=== PATIENT | female | born 1980 | race Caucasian/White ===

== ENCOUNTER → 2021-03-05 08:40 | Outpatient (BNVA) | payer OTHER, SELFPAY | PROVIDERS: Visit Provider Advanced Practice Midwife | DX: N92.6 Irregular menstruation, unspecified (principal) | CPT/HCPCS: 81025 ==

== ENCOUNTER 2021-03-26 09:17 | Outpatient (REF) | payer OTHER, SELFPAY ==
--- NOTE | ~2021-03-26 | US_ITS ---
EXAMINATION: US OBSTETRICAL ULTRASOUND CLINICAL INFORMATION: Unknown LMP. COMPARISON: None. LMP: . Gestational age by maternal dates is . Estimated date of delivery by maternal dates is . TECHNIQUE: Transabdominal first trimester OB ultrasound FINDINGS: There is a single intrauterine gestational sac with visible yolk sac, embryo/fetus, and cardiac activity. There is no significant subchorionic hemorrhage or hematoma. HR: 160 beats per minute. CRL (crown rump length): 1.2 cm (7 weeks 3 days +/- 4 days). NOHEMI (estimated date of delivery): 11/09/2020 +/- 4 days. MATERNAL ADNEXA: The right maternal ovary measures 2.4 x 1.1 x 2.4 cm. The left maternal ovary measures 4.2 x 3.1 x 2.4 cm. there are 2 cysts measuring 2.7 x 2.5 x 2.2 cm and 1.7 0.7 x 1.4 cm. There is no significant maternal adnexal mass. No maternal pelvic ascites. US/US OB <= 14 weeks fetus IMPRESSION: 1. Single intrauterine gestation with ultrasound gestational age of 7 weeks 3 days +/- 4 days. 2. Estimated date of delivery is 11/09/2020 +/- 4 days.
== END 2021-03-26 09:18 | disposition home or self-care (01) ==
LOC: HO.US 09:17
PROVIDERS: Visit Provider Advanced Practice Midwife
DX: O09.521 Supervision of elderly multigravida, first trimester (principal); Z3A.08 8 weeks gestation of pregnancy
CPT/HCPCS: 76801

== ENCOUNTER → 2021-04-02 13:54 | Outpatient (BNVA) | payer OTHER, SELFPAY | PROVIDERS: Visit Provider Advanced Practice Midwife | DX: O09.521 Supervision of elderly multigravida, first trimester (principal); Z3A.08 8 weeks gestation of pregnancy; Z83.3 Family history of diabetes mellitus | CPT/HCPCS: 99212 ==

== ENCOUNTER 2021-04-25 13:28 | Outpatient (REF) | payer OTHER, SELFPAY ==
--- NOTE | ~2021-04-25 | US_ITS ---
EXAMINATION: OBSTETRICAL ULTRASOUND, FIRST TRIMESTER HISTORY: 40-year-old at 12.0 weeks of gestation AMA NT screening COMPARISON: 03/26/2021 TECHNIQUE: Real time transabdominal imaging with color and M-mode Doppler. FINDINGS: A single, live IUP CRL of 62.8 mm c/w 12.5wks is noted. Heart Rate: 160 beats per minute. Normal yolk sac seen. NT was 1.3.mm. NB Present The embryo appears sonographically wnl for this GA. Both maternal ovaries are seen and appear normal. GESTATIONAL AGE: 1. Established GA: 12.0 wks 2. GA from AUA: 12.5 wks ESTIMATED DATE OF DELIVERY: 1. Established NOHEMI: 11/07/2021 2. NOHEMI from [facility]: 11/02/2021 US/US OB 1T nuc measure IMPRESSION: 1. A single live IUP 2. Size equals dates 3. NT of 1.3 mm MFM Consultation: I reviewed the ultrasound findings along with significance of NT measurement. The NT of less than 3mm is generally reassuring. However, the sensitivity for T21 detection is only 60%. I reviewed the availability of serum aneuploidy screening which includes cell-free DNA and placental protein based tests. I discussed the sensitivity, false-positive rate, and other limitations associated with each test. I also reviewed the availability of invasive diagnostic tests that are associated small but definite risk of miscarriage. We also reviewed the differences between screening tests and diagnostic tests. After our discussion, she opted for the First trimester screening that is based on cell-free DNA or non-invasive testing (NIPT). The result will be faxed to your office in approximately 7 days. A follow up at 18 weeks for survey has been scheduled. Thank you very much for this referral. Total time 30 minutes. The time spent was devoted to counseling the patient about the disease and diagnosis, coordinating care including reviewing her records, pertinent lab data and studies, as well as discussing diagnostic evaluation and workup, plan therapeutic interventions and future disposition of care. This includes any additional research needed to obtain further information in formulating the plan of care of this patient. This note was generated with a voice recognition program. Please excuse any errors which may have been overlooked during my review of this note. Sometimes these errors may affect the content or meaning of a given sentence.
== END 2021-04-25 13:29 | disposition home or self-care (01) ==
LOC: HO.US 13:28
PROVIDERS: Visit Provider Advanced Practice Midwife
DX: O09.529 Supervision of elderly multigravida, unspecified trimester (principal)
CPT/HCPCS: 76813

== ENCOUNTER 2021-05-09 08:34 | Outpatient (REF) | payer OTHER, SELFPAY ==
[2021-05-09 13:59] LABS: CT PCR NOT DETECTED (Not Detect.); NG PCR NOT DETECTED (Not Detect.)
[2021-05-11 11:57] LABS: BV Int Neg Control Negative (Negative); BV Int Pos Control Positive (Positive)
== END 2021-05-09 08:35 | disposition home or self-care (01) ==
LOC: HO.LAB 08:34
PROVIDERS: Visit Provider Advanced Practice Midwife
DX: O09.521 Supervision of elderly multigravida, first trimester (principal); O99.281 Endocrine, nutritional and metabolic diseases complicating pregnancy, first trimester; E04.9 Nontoxic goiter, unspecified; O99.891 Other specified diseases and conditions complicating pregnancy; N89.8 Other specified noninflammatory disorders of vagina; Z3A.13 13 weeks gestation of pregnancy
CPT/HCPCS: 81003; 87480; 87491; 87510; 87591; 87660; 99212

== ENCOUNTER 2021-05-16 09:20 | Outpatient (REF) | payer OTHER, SELFPAY ==
[2021-05-16 09:50] LABS: Hematocrit 33.4 % (37-47); Hemoglobin 11.2 g/dl (12.0-16.0); Mean Corpuscular HGB Conc 33.5 g/dl (31.0-35.0); Mean Corpuscular Hemoglobin 31.3 pg (27.0-33.0); Mean Corpuscular Volume 93.3 fL (80-98); Mean Platelet Volume 9.1 fL (9.4-12.3); Platelet Count 289 X10*3/uL (160-400); Red Blood Count 3.58 X10*6/uL (4.20-5.50); Red Cell Distribution Width 12.8 % (11.0-16.0); White Blood Count 9.2 X10*3/uL (4.8-10.8)
[2021-05-16 10:31] LABS: TSH reflex Free T4 (Prenatal) 0.84 uIU/mL (0.32-4.0)
[2021-05-16 10:35] LABS: HBsAGNum1 0.18 S/CO (0.00-0.99); HIV AB/AG Nonreactive (Nonreactive); HIV Num 1 0.11 S/CO (0.00-0.99); Hepatitis B Surface Antigen Negative (Negative); ~HepC Num1 0.06 S/CO (0.00-0.79); ~Hepatitis C Antibody Nonreactive (Nonreactive)
[2021-05-16 10:46] LABS: Syphilis Screen Nonreactive (Nonreactive)
[2021-05-16 11:10] LABS: Amphetamine Screen Urine Not Detected (Not Detect); Barbiturates, Urine Not Detected (Not Detect); Benzodiazepines Screen Urine Not Detected (Not Detect); Cannabinoid Screen Urine Not Detected (Not Detect); Cocaine Screen Urine Not Detected (Not Detect); Fentanyl, urine Not Detected (Not Detect); Opiate Screen Urine Not Detected (Not Detect); Phencyclidine Screen Urine Not Detected (Not Detect)
[2021-05-18 01:07] LABS: Rubella IgG Antibody 3.39 Index
== END 2021-05-16 09:21 | disposition home or self-care (01) ==
LOC: HO.LAB 09:20
PROVIDERS: Visit Provider Advanced Practice Midwife
DX: O99.280 Endocrine, nutritional and metabolic diseases complicating pregnancy, unspecified trimester (principal); E04.9 Nontoxic goiter, unspecified; Z3A.00 Weeks of gestation of pregnancy not specified
CPT/HCPCS: 80307; 85027; 86762; 86780; 86787; 86803; 86850; 86900; 86901; 87086; 87340; 87389

== ENCOUNTER 2021-05-24 08:54 | Outpatient (REF) | payer OTHER, SELFPAY ==
[2021-05-24 10:51] LABS: Glucose 1 Hour PP 50gm Dose 76 mg/dL (60-140)
== END 2021-05-24 08:55 | disposition home or self-care (01) ==
LOC: HO.LAB 08:54
PROVIDERS: Visit Provider Advanced Practice Midwife
DX: Z32.01 Encounter for pregnancy test, result positive (principal)
CPT/HCPCS: 36415

== ENCOUNTER 2021-06-02 11:43 | Outpatient (REF) | payer OTHER, SELFPAY ==
--- NOTE | ~2021-06-02 | US_ITS ---
EXAMINATION: US THYROID CLINICAL INFORMATION: Nontoxic goiter, unspecified. COMPARISON: None TECHNIQUE: Linear transducer grayscale and color Doppler examination with attention to the region of the thyroid. FINDINGS: SIZE: Measurements of the thyroid lobes and nodules are given in sagittal, anteroposterior and transverse dimensions respectively. Right Thyroid Lobe: 5.5 x 2.0 x 1.4 cm, volume 8.1 mL. Parenchyma: The gland echotexture is homogeneous. Thyroid vascularity is normal. Left Thyroid Lobe: 6.0 x 2.9 x 3.3 cm, volume 30.0 mL. Parenchyma: The gland echotexture is homogeneous. Thyroid vascularity is normal. Isthmus: 0.5 cm in maximum AP dimension. Estimated total number of nodules greater than or equal to 1 cm: 2. It Security Analyst nodules are described as follows: 1. Location: Left mid pole. Size: 4.2 x 3.0 x 2.9 cm, volume 18.9 mL. Nodule characteristics: Composition: Mixed cystic and solid (1). Echogenicity: Hypoechoic (2). Shape: Not taller than wide (0). Margins: Smooth (0). Echogenic Foci: None (0). ACR TI-RADS total points: 3 ACR TI-RADS category: 3 2. Location: Left mid pole. Size: 2.2 x 1.6 x 1.6 cm, volume 2.97 mL. Nodule characteristics: Composition: Solid/almost completely solid (2). Echogenicity: Isoechoic (1). Shape: Taller than wide (3). Margins: Smooth (0). Echogenic Foci: None (0). ACR TI-RADS total points: 6 ACR TI-RADS category: 4 3. Location: Right mid pole. Size: 0.9 x 0.7 x 0.6 cm, volume 0.185 mL. Nodule characteristics: Composition: Solid (2). Echogenicity: Hyperechoic (1). Shape: Not taller than wide (0). Margins: Smooth (0). Echogenic Foci: Punctate echogenic foci (3). ACR TI-RADS total points: 6 ACR TI-RADS category: 4 NODES: No lymphadenopathy is seen in the tissue surrounding the thyroid gland. US/US thyroid IMPRESSION: Enlarged left lobe. Bilateral thyroid nodules. Fine needle aspiration of the solitary small nodule in the right middle lobe and the smaller complex cystic nodule in the left midlobe recommended. ACR TI-RADS RECOMMENDATION REFERENCE: Ultrasound-guided fine-needle aspiration, followup ultrasound, no further follow up. * TR1 (0 point) and TR 2 (2 points): No FNA or follow up * TR3 (3 points): FNA if more than or equal to 2.5 cm in maximum dimension, followup ultrasound in 1, 3 and 5 years if 1.5 to 2.4 cm in maximum dimension. * TR4 (4-6 points): FNA if more than or equal to 1.5 cm in maximum dimension, followup ultrasound in 1, 2, 3 and 5 years if 1 to 1.4 cm in maximum dimension. * TR5 (more than or equal to 7 points): FNA if more than or equal to 1 cm in maximum dimension, followup ultrasound every year for 5 years if 0.5 to 0.9 cm in maximum dimension. * TR3, TR4 or TR5 nodules that are below the size threshold for follow up receive no follow up.
== END 2021-06-02 11:44 | disposition home or self-care (01) ==
LOC: HO.US 11:43
PROVIDERS: Visit Provider Advanced Practice Midwife
DX: E04.9 Nontoxic goiter, unspecified (principal)
CPT/HCPCS: 76536

== ENCOUNTER → 2021-06-09 08:07 | Outpatient (BNVA) | payer OTHER, SELFPAY | PROVIDERS: Visit Provider Advanced Practice Midwife | DX: Z34.82 Encounter for supervision of other normal pregnancy, second trimester (principal); Z3A.18 18 weeks gestation of pregnancy | CPT/HCPCS: 81003; 99212 ==

== ENCOUNTER 2021-06-13 13:50 | Outpatient (REF) | payer OTHER, SELFPAY ==
--- NOTE | ~2021-06-13 | US_ITS ---
EXAMINATION: US OBSTETRICAL CLINICAL INFORMATION: A 40-year-old at 19.0 weeks of gestation AMA Suspected anomaly COMPARISON: 04/25/2021 TECHNIQUE: Real-time transabdominal ultrasound was performed using C1-5 megahertz transducer. FINDINGS: A single, active, fetus is seen in breech presentation. The placenta is anterior without previa, and the amniotic fluid volume is wnl. MEASUREMENTS: 1. Biparietal Diameter: 4.2 cm; 18.6 wks 2. Occipital Frontal Diameter: 5.6 cm 3. Head Circumference: 16.1 cm; 19.0 wks 4. Abdominal Circumference: 14.4 cm; 19.6 wks 5. Femur Length: 3.0 cm; 19.2 wks 6. Humerus Length: 3.0 cm; 19.6 wks 7. Tibia Length: 2.6 cm; 19.4 wks 8. Ulna Length: 2.8 cm; 20.1 wks 9. Lateral ventricle: 0.54 cm 10. Cerebellum: 2.0 cm; 20.2 wks 11. Cisterna Magna: 0.34 cm 12. Nuchal Fold: 2.73 mm 13. Heart Rate: 137 beats per minute Rt ovary: normal Lt ovary: normal Cervical length 3.5 cm on T/A. GESTATIONAL AGE: 1. Established GA: 19.0 wks 2. GA from [facility]: 19.2 wks ESTIMATED DATE OF DELIVERY: 1. Established NOHEMI: 11/07/2021 2. NOHEMI from [facility]: 11/05/2021 ANATOMY: The views of the choroid plexus and spine were suboptimal due to position. The visualized anatomy includes but not limited to: 1. Cranium: Normal 2. Intracranial anatomy: cavum septum pellucidi, lateral ventricles, cerebellum, posterior fossa, third and fourth ventricles. 3. face: orbits, lip/palate, profile, nasal bone 4. Heart: four-chamber view of the heart, ventricular septum, foramen ovale, pulmonary vein, left and right outflow tracts, three-vessel view, 3 vessel trachea view, aortic and ductal arches, situs.. 5. Diaphragm: Normal 6. Abdominal wall: Normal 7. Cord Insertion: Normal 8. Spine: Limited. 9. Stomach: Normal size and shape 10. Right Kidney: Normal 11. Left Kidney: Normal 12. 3 vessel cord: Normal 13. Upper extremity: Open hands, fifth digit. 14. Lower extremity: Tibia, fibula, bilateral feet. 15. Bladder: Normal 16. Genitalia: Female, patient aware US/US OB /maternal detail IMPRESSION: 1. Single, living, intrauterine with appropriate biometry. 2. Limited survey due to position. No abnormalities were seen in visualized anatomy. RECOMMENDATIONS: 1. Follow-up in 2 weeks (scheduled) Thank you for allowing me to participate in her care. This note was generated with a voice recognition program. Please excuse any errors which may have been overlooked during my review of this note. Sometimes these errors may affect the content or meaning of a given sentence.
== END 2021-06-13 13:51 | disposition home or self-care (01) ==
LOC: HO.US 13:50
PROVIDERS: Visit Provider Advanced Practice Midwife
DX: Z36.3 Encounter for antenatal screening for malformations (principal)
CPT/HCPCS: 76811

== ENCOUNTER 2021-06-27 09:02 | Outpatient (REF) | payer OTHER, SELFPAY ==
--- NOTE | ~2021-06-27 | US_ITS ---
EXAMINATION: OBSTETRICAL ULTRASOUND, Follow up HISTORY: A 41-year-old at the 21.0 weeks of gestation AMA Incomplete survey COMPARISON: 06/13/2021 TECHNIQUE: Real time transabdominal imaging with color and M-mode Doppler. PRESENTATION: Vertex PLACENTA LOCATION: Anterior without previa AMNIOTIC FLUID: Normal MEASUREMENTS: 1. Biparietal Diameter: 4.8 cm; 24 wks 2. Head Circumference: 18.6 cm; 21.0 wks 3. Abdominal Circumference: 15.4 cm; 20.5 wks 4. Femur Length: 3.7 cm; 21.6 wks 5. Heart Rate: 153 beats per minute WEIGHT: Estimated weight is 399 grams (0 lbs 14 oz) -- 50 %. Normal views of lateral cerebral ventricle, choroid plexus, profile, nose/lips, 4ch view, LVOT, RVOT, and spine. GESTATIONAL AGE: 1. Established GA: 21.0 wks 2. GA from [facility]: 21.1 wks ESTIMATED DATE OF DELIVERY: 1. Established NOHEMI: 11/07/2021 2. NOHEMI from [facility]: 11/06/2021 US/US OB follow up IMPRESSION: 1. A single fetus with appropriate interval growth. 2. Previously limited views of the anatomy were seen as listed above. No abnormalities were noted in visualized anatomy. 3. This completes the survey. I reviewed the limitations of ultrasound in diagnosing aneuploidy and other congenital abnormalities. Amniocentesis was again reviewed and she declined. She was informed that the baseline instance of congenital abnormalities and defects in the general population is approximately 3-5%. Not all these conditions are diagnosable in utero. RECOMMENDATIONS: 1. f/u PRN Thank you very much for this referral. This note was generated with a voice recognition program. Please excuse any errors which may have been overlooked during my review of this note. Sometimes these errors may affect the content or meaning of a given sentence.
== END 2021-06-27 09:03 | disposition home or self-care (01) ==
LOC: HO.US 09:02
PROVIDERS: Visit Provider Advanced Practice Midwife
DX: Z34.92 Encounter for supervision of normal pregnancy, unspecified, second trimester (principal)
CPT/HCPCS: 76816

== ENCOUNTER → 2021-07-07 08:20 | Outpatient (BNVA) | payer OTHER, SELFPAY | PROVIDERS: Visit Provider Obstetrics & Gynecology | DX: O99.012 Anemia complicating pregnancy, second trimester (principal); D64.9 Anemia, unspecified; O99.282 Endocrine, nutritional and metabolic diseases complicating pregnancy, second trimester; E04.2 Nontoxic multinodular goiter; Z3A.22 22 weeks gestation of pregnancy | CPT/HCPCS: 99212 ==

== ENCOUNTER → 2021-08-04 08:08 | Outpatient (BNVA) | payer OTHER, SELFPAY | PROVIDERS: Visit Provider Obstetrics & Gynecology | DX: O99.282 Endocrine, nutritional and metabolic diseases complicating pregnancy, second trimester (principal); C73 Malignant neoplasm of thyroid gland; Z3A.26 26 weeks gestation of pregnancy | CPT/HCPCS: 99212 ==

== ENCOUNTER 2021-08-18 10:59 | Outpatient (REF) | payer OTHER, SELFPAY | END 2021-08-18 11:00 | disposition home or self-care (01) | LOC: HO.LAB 10:59 | PROVIDERS: Visit Provider Obstetrics & Gynecology | DX: O09.521 Supervision of elderly multigravida, first trimester (principal); Z3A.08 8 weeks gestation of pregnancy | CPT/HCPCS: 87086; 99212 ==

== ENCOUNTER 2021-08-20 06:01 | Outpatient (REF) | payer OTHER, SELFPAY ==
[2021-08-20 07:20] LABS: Hematocrit 35.1 % (37.0-47.0); Hemoglobin 11.3 g/dl (12.0-16.0); Mean Corpuscular HGB Conc 32.2 g/dl (31.0-35.0); Mean Corpuscular Hemoglobin 29.4 pg (27.0-33.0); Mean Corpuscular Volume 91.2 fL (80.0-98.0); Platelet Count 300 X10*3/uL (160-400); Red Blood Count 3.85 X10*6/uL (4.20-5.50); Red Cell Distribution Width 13.5 % (11.0-16.0); White Blood Count 9.7 X10*3/uL (4.8-10.8)
[2021-08-20 08:33] LABS: Glucose 1 Hour PP 50gm Dose 64 mg/dL (60-140)
[2021-08-20 08:34] LABS: Syphilis Screen Nonreactive (Nonreactive)
== END 2021-08-20 06:02 | disposition home or self-care (01) ==
LOC: HO.LAB 06:01
PROVIDERS: Visit Provider Obstetrics & Gynecology
DX: Z34.90 Encounter for supervision of normal pregnancy, unspecified, unspecified trimester (principal)
CPT/HCPCS: 36415; 85027; 86780

== ENCOUNTER → 2021-09-01 08:06 | Outpatient (BNVA) | payer OTHER, SELFPAY | PROVIDERS: Visit Provider Advanced Practice Midwife | DX: Z34.83 Encounter for supervision of other normal pregnancy, third trimester (principal); Z3A.30 30 weeks gestation of pregnancy | CPT/HCPCS: 81003; 99212 ==

== ENCOUNTER → 2021-09-17 08:04 | Outpatient (BNVA) | payer OTHER, SELFPAY | PROVIDERS: Visit Provider Advanced Practice Midwife | DX: O09.523 Supervision of elderly multigravida, third trimester (principal); O36.5930 Maternal care for other known or suspected poor fetal growth, third trimester, not applicable or unspecified; Z3A.32 32 weeks gestation of pregnancy | CPT/HCPCS: 81003; 99212 ==

== ENCOUNTER 2021-09-26 08:28 | Outpatient (REF) | payer OTHER, SELFPAY ==
--- NOTE | ~2021-09-26 | US_ITS ---
EXAMINATION: OBSTETRICAL ULTRASOUND, Follow up HISTORY: 41-year-old at the 34.0 weeks of gestation AMA Size date discrepancy COMPARISON: 06/27/2021 TECHNIQUE: Real time transabdominal imaging with color and M-mode Doppler. PRESENTATION: Vertex PLACENTA LOCATION: Anterior without previa AMNIOTIC FLUID: CLIF 11.5 cm MEASUREMENTS: 1. Biparietal Diameter: 8.0 cm; 32.3 wks 2. Head Circumference: 30.9 cm; 34.4 wks 3. Abdominal Circumference: 30.5 cm; 34.4 wks 4. Femur Length: 6.5 cm; 33.5 wks 5. Heart Rate: 140 beats per minute WEIGHT: EFW: 2332 grams (5 lbs 2 oz) -- 44 %. BIOPHYSICAL PROFILE: Motion: 2 Tone: 2 Breathin Amniotic Fluid: 2 Total score: 8/8 GESTATIONAL AGE: 1. Established GA: 34.0 wks 2. GA from [facility]: 33.6 wks ESTIMATED DATE OF DELIVERY: 1. Established NOHEMI: 11/07/2021 2. NOHEMI from [facility]: 11/08/2021 US/US OB follow up IMPRESSION: 1. A single active fetus is in vertex presentation 2. Size equals dates 3. BPP 04/27 with an CLIF of 11.5 cm. Thank you very much for this referral. No further ultrasound has been scheduled. This note was generated with a voice recognition program. Please excuse any errors which may have been overlooked during my review of this note. Sometimes these errors may affect the content or meaning of a given sentence.
== END 2021-09-26 08:29 | disposition home or self-care (01) ==
LOC: HO.US 08:28
PROVIDERS: Visit Provider Advanced Practice Midwife
DX: O36.5930 Maternal care for other known or suspected poor fetal growth, third trimester, not applicable or unspecified (principal); O09.523 Supervision of elderly multigravida, third trimester; O26.843 Uterine size-date discrepancy, third trimester; Z3A.34 34 weeks gestation of pregnancy
CPT/HCPCS: 76816

== ENCOUNTER → 2021-10-01 08:26 | Outpatient (BNVA) | payer OTHER, SELFPAY | PROVIDERS: Visit Provider Advanced Practice Midwife | DX: O09.523 Supervision of elderly multigravida, third trimester (principal); O9A.113 Malignant neoplasm complicating pregnancy, third trimester; C73 Malignant neoplasm of thyroid gland; O09.293 Supervision of pregnancy with other poor reproductive or obstetric history, third trimester; Z3A.34 34 weeks gestation of pregnancy | CPT/HCPCS: 81003; 99212 ==

== ENCOUNTER → 2021-10-08 09:20 | Outpatient (BNVA) | payer OTHER, SELFPAY | PROVIDERS: Visit Provider Obstetrics & Gynecology | DX: O09.523 Supervision of elderly multigravida, third trimester (principal); Z3A.35 35 weeks gestation of pregnancy | CPT/HCPCS: 99212 ==

== ENCOUNTER 2021-10-10 08:06 | Outpatient (RCR) | payer OTHER, SELFPAY ==
--- NOTE | 2021-11-14 14:23 | MHC.PT.DC ---
[facility] [place] Office [place] Office [place] Office [address] [place] [address] [phone] F: [phone] F: [phone] F: [phone] F: [phone] Physical Therapy Discharge Report Diagnosis: SCIATICA- 35 WEEKS W SEVERE NERVE PAIN Date of Surgery: Date of Evaluation: 10/10/21 Date of Discharge: 11/14/21 Treatments to Date: 1 Cancellations to Date: 1 No Shows to Date: 1 Discharge Status: Patient Elected to Stop Discharge Summary: 41 YO FEMALE REF TO PT FOR Rt SCIATICA W EXACERBATED SXS 3 DAYS AGO- SHE IS 35 WKS W HER 2ND CHILD. 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 OBJECTIVELY, Pt HAS DECR POSTURAL AWARENESS, INCR LORDOSIS/ ROUNDED SH/ ANT PELVIC TILT; (+) LUMBOPELVIC ASYMM; HIP TIGHTNESS AND PROX LEs/ CORE MM IMBALANCE; INCR TISSUE TENSION KEVIN LUMBAR PS MM AND TTP Rt SI Jt AND SACROTUBEROUS LIG TENDERNESS.FUNCTIONALLY, Pt IS VERY GUARDED WITH GAIT, TRANSFERS, BED MOB- SHE IS UNABLE TO POSITION IN HL OR SUPINE- AND HAS TO FREQ CHANGE POSITIONS. Pt WOULD BENEFIT FROM SOME PT PRIOR TO ONSET LABOR/ DELIVERY. Electronically signed by: Poly Lebron,PT Please sign and return to therapist. Thank you for your referral.
== END 2021-11-14 14:20 | disposition home or self-care (01) ==
LOC: HO.PT 08:06
PROVIDERS: Visit Provider Obstetrics & Gynecology
DX: M54.30 Sciatica, unspecified side (principal)
CPT/HCPCS: 97110; 97140; 97161; 97530

== ENCOUNTER 2021-10-15 10:06 | Outpatient (REF) | payer OTHER, SELFPAY | END 2021-10-15 10:07 | disposition home or self-care (01) | LOC: HO.LAB 10:06 | PROVIDERS: Visit Provider Obstetrics & Gynecology | DX: O09.523 Supervision of elderly multigravida, third trimester (principal); O26.893 Other specified pregnancy related conditions, third trimester; M53.3 Sacrococcygeal disorders, not elsewhere classified; Z3A.36 36 weeks gestation of pregnancy | CPT/HCPCS: 59025; 87081; 99212 ==

== ENCOUNTER 2021-10-17 08:29 | Outpatient (REF) | payer OTHER, SELFPAY ==
--- NOTE | ~2021-10-17 | US_ITS ---
EXAMINATION: US OBSTETRICAL (BIOPHYSICAL PROFILE) CLINICAL INFORMATION: 41-year-old at 37.0 weeks of gestation AMA COMPARISON: 09/26/2021 TECHNIQUE: Biophysical profile is performed over 30 minutes with assessment of breathing, gross body movement, tone, and qualitative amniotic fluid volume. FINDINGS: POSITION: Cephalic PLACENTA: Anterior AMNIOTIC FLUID INDEX: 8.0 cm CARDIAC ACTIVITY: 136 beats per minute BIOPHYSICAL PROFILE: Motion: 2 Tone: 2 Breathin Amniotic Fluid: 2 The total biophysical score is 8/8 US/US OB biophysical profile IMPRESSION: 1. Single intrauterine gestation in vertex position. 2. Reassuring BPP and CLIF Thank you for allowing me to participate in her care. This note was generated with a voice recognition program. Please excuse any errors which may have been overlooked during my review of this note. Sometimes these errors may affect the content or meaning of a given sentence.
== END 2021-10-17 08:30 | disposition home or self-care (01) ==
LOC: HO.US 08:29
PROVIDERS: Visit Provider Advanced Practice Midwife
DX: O09.523 Supervision of elderly multigravida, third trimester (principal); Z3A.37 37 weeks gestation of pregnancy
CPT/HCPCS: 76819

== ENCOUNTER → 2021-10-20 11:02 | Outpatient (BNVA) | payer OTHER, SELFPAY | PROVIDERS: Visit Provider Advanced Practice Midwife | DX: O09.523 Supervision of elderly multigravida, third trimester (principal); Z3A.37 37 weeks gestation of pregnancy | CPT/HCPCS: 59025; 99212 ==

== ENCOUNTER 2021-10-24 08:31 | Outpatient (REF) | payer OTHER, SELFPAY ==
--- NOTE | ~2021-10-24 | US_ITS ---
EXAMINATION: OBSTETRICAL ULTRASOUND, Follow up HISTORY: 41-year-old at 38.0 weeks of gestation AMA COMPARISON: 10/17/2021 TECHNIQUE: Real time transabdominal imaging with color and M-mode Doppler. PRESENTATION: Vertex PLACENTA LOCATION: Anterior without previa AMNIOTIC FLUID: CLIF 14 cm MEASUREMENTS: 1. Biparietal Diameter: 8.9 cm; 36.0 wks 2. Head Circumference: 32.2 cm; 6.3 wks 3. Abdominal Circumference: 31.95 cm; 36.0 wks 4. Femur Length: 7.0 cm; 6.0 wks 5. Heart Rate: 153 beats per minute WEIGHT: EFW: 2813 grams (6 lbs 3 oz) -- 15 %. BIOPHYSICAL PROFILE: Motion: 2 Tone: 2 Breathin Amniotic Fluid: 2 Total score: 8/8 UA Doppler showed SD ratio of 2.6 GESTATIONAL AGE: 1. Established GA: 38.0 wks 2. GA from [facility]: 36.1 wks ESTIMATED DATE OF DELIVERY: 1. Established NOHEMI: 11/07/2021 2. NOHEMI from [facility]: 11/20/2021 US/US OB follow up IMPRESSION: 1. A single active fetus is in vertex presentation 2. Size equals dates. EFW corresponds to 15th percentile. Compared to prior exam, this represents less than expected interval growth 3. Reassuring biophysical profile score with normal amniotic fluid index 4. Normal SD ratio in umbilical artery. Thank you very much for this referral. Suggest the delivery at approximately 39 weeks of gestation. This note was generated with a voice recognition program. Please excuse any errors which may have been overlooked during my review of this note. Sometimes these errors may affect the content or meaning of a given sentence.
--- NOTE | ~2021-10-24 | US_ITS ---
EXAMINATION: OBSTETRICAL ULTRASOUND, Follow up HISTORY: 41-year-old at 38.0 weeks of gestation AMA COMPARISON: 10/17/2021 TECHNIQUE: Real time transabdominal imaging with color and M-mode Doppler. PRESENTATION: Vertex PLACENTA LOCATION: Anterior without previa AMNIOTIC FLUID: CLIF 14 cm MEASUREMENTS: 1. Biparietal Diameter: 8.9 cm; 36.0 wks 2. Head Circumference: 32.2 cm; 6.3 wks 3. Abdominal Circumference: 31.95 cm; 36.0 wks 4. Femur Length: 7.0 cm; 6.0 wks 5. Heart Rate: 153 beats per minute WEIGHT: EFW: 2813 grams (6 lbs 3 oz) -- 15 %. BIOPHYSICAL PROFILE: Motion: 2 Tone: 2 Breathin Amniotic Fluid: 2 Total score: 8/8 UA Doppler showed SD ratio of 2.6 GESTATIONAL AGE: 1. Established GA: 38.0 wks 2. GA from A: 36.1 wks ESTIMATED DATE OF DELIVERY: 1. Established NOHEMI: 11/07/2021 2. NOHEMI from [facility]: 11/20/2021 US/US OB velocimetry umbilical ar IMPRESSION: 1. A single active fetus is in vertex presentation 2. Size equals dates. EFW corresponds to 15th percentile. Compared to prior exam, this represents less than expected interval growth 3. Reassuring biophysical profile score with normal amniotic fluid index 4. Normal SD ratio in umbilical artery. Thank you very much for this referral. Suggest the delivery at approximately 39 weeks of gestation. This note was generated with a voice recognition program. Please excuse any errors which may have been overlooked during my review of this note. Sometimes these errors may affect the content or meaning of a given sentence.
== END 2021-10-24 08:32 | disposition home or self-care (01) ==
LOC: HO.US 08:31
PROVIDERS: Visit Provider Advanced Practice Midwife
DX: O09.523 Supervision of elderly multigravida, third trimester (principal)
CPT/HCPCS: 76816; 76820

== ENCOUNTER → 2021-10-27 10:03 | Outpatient (BNVA) | payer OTHER, SELFPAY | PROVIDERS: Visit Provider Advanced Practice Midwife | DX: O09.523 Supervision of elderly multigravida, third trimester (principal); Z3A.38 38 weeks gestation of pregnancy | CPT/HCPCS: 59025; 99212 ==

== ENCOUNTER 2021-12-15 08:10 | Outpatient (REF) | payer OTHER, SELFPAY ==
[2021-12-15 09:50] LABS: Calcium 9.2 mg/dL (8.4-10.2)
== END 2021-12-15 08:11 | disposition home or self-care (01) ==
LOC: HO.LAB 08:10
PROVIDERS: Visit Provider Surgery
DX: E04.1 Nontoxic single thyroid nodule (principal)
CPT/HCPCS: 36415; 82310

== ENCOUNTER 2022-04-11 09:57 | Outpatient (REF) | payer OTHER, SELFPAY ==
[2022-04-11 12:14] LABS: Free T4 (Free Thyroxine) 1.16 ng/dL (0.71-1.85)
== END 2022-04-11 09:58 | disposition home or self-care (01) ==
LOC: HO.LAB 09:57
PROVIDERS: PCP Nurse Practitioner Adult Health; Visit Provider Nurse Practitioner Adult Health
DX: C73 Malignant neoplasm of thyroid gland (principal)
CPT/HCPCS: 36415; 84439; 84443

== ENCOUNTER → 2022-05-18 13:59 | Outpatient (BNVA) | payer OTHER, SELFPAY | PROVIDERS: PCP Nurse Practitioner Adult Health; Visit Provider Obstetrics & Gynecology | DX: N89.8 Other specified noninflammatory disorders of vagina (principal) | CPT/HCPCS: 10160 ==

== ENCOUNTER 2022-07-15 06:17 | Outpatient (REF) | payer OTHER, SELFPAY ==
[2022-07-15 08:26] LABS: Blood Urea Nitrogen 14 mg/dL (9-16); Estimated Glomerular Filt Rate > 60
== END 2022-07-15 06:18 | disposition home or self-care (01) ==
LOC: HO.LAB 06:17
PROVIDERS: Visit Provider Obstetrics & Gynecology
DX: N89.8 Other specified noninflammatory disorders of vagina (principal)
CPT/HCPCS: 36415; 82565; 84520

== ENCOUNTER 2022-07-17 09:47 | Outpatient (REF) | payer OTHER, SELFPAY ==
--- NOTE | ~2022-07-17 | CT_ITS ---
EXAMINATION: CT ABDOMEN AND PELVIS WITHOUT AND WITH CONTRAST CLINICAL INFORMATION: Other specified noninflammatory disorders of vagina COMPARISON: None TECHNIQUE: Multidetector volumetric imaging was performed of the abdomen and pelvis before and after the IV administration of 85 mL of Omnipaque 350 intravenous contrast. Sagittal and coronal reformatted images were obtained on the technologist's workstation. This CT examination was performed using dose optimization techniques as appropriate, variously including the following: *Automated exposure control *Adjustment of mA and/or kV according to patient size (this includes techniques or standardized protocols for targeted exams where dose is matched to indication/reason for exam; i.e. extremities or head) *Use of iterative reconstruction technique DLP: 1017 mGy-cm FINDINGS: LUNG BASES: The visualized lung bases are unremarkable. LIVER, GALLBLADDER, AND BILIARY TREE: The liver is low in attenuation suggestive of fatty infiltration. There is focal low-attenuation in the medial segment of the left lobe of the liver adjacent to the falciform ligament. No other focal liver lesion. Normal gallbladder. No biliary duct dilatation. PANCREAS: Unremarkable SPLEEN: Unremarkable ADRENAL GLANDS: Unremarkable KIDNEYS AND URETERS: The kidneys are normal in size, shape, and attenuation. No hydronephrosis, hydroureter, or calculi seen. No perinephric stranding. BLADDER: Unremarkable GASTROINTESTINAL TRACT: The small and large bowel are unremarkable. The appendix is unremarkable. ABDOMINAL WALL: Small umbilical hernia containing fat. LYMPH NODES: Normal VASCULAR: Unremarkable PELVIC VISCERA: There is a complex multiloculated fluid collection around the right side of the vagina extending upward toward the cervix. No enhancement or solid component. This measures 1.6 x 2.2 cm in greatest AP and transverse dimension and extends over a length of 4.5 cm. The uterus and ovaries are unremarkable. OSSEOUS STRUCTURES: Unremarkable CT/CT abdomen pelvis wo/w IV con IMPRESSION: 1.6 x 2.2 x 4.5 cm multiloculated fluid collection adjacent to the right side of the vagina extending superiorly toward the cervix. Fleischner guidelines were followed.
[2022-07-17] MEDS: iohexoL 350 MG/ML 100 ML INFUS..BTL IV (11:43)
== END 2022-07-17 09:48 | disposition home or self-care (01) ==
LOC: HO.CT 09:47
PROVIDERS: Visit Provider Obstetrics & Gynecology
DX: N89.8 Other specified noninflammatory disorders of vagina (principal)
CPT/HCPCS: 74178; Q9967

== ENCOUNTER → 2022-08-03 08:13 | Outpatient (BNVA) | payer OTHER, SELFPAY | PROVIDERS: PCP Nurse Practitioner Adult Health; Visit Provider Obstetrics & Gynecology | DX: N89.8 Other specified noninflammatory disorders of vagina (principal) | CPT/HCPCS: 56405 ==

== ENCOUNTER 2022-11-09 13:42 | Outpatient (REF) | payer OTHER, SELFPAY ==
[2022-11-09 15:58] LABS: TSH reflex Free T4 0.84 uIU/mL (0.32-4.0)
== END 2022-11-09 13:43 | disposition home or self-care (01) ==
LOC: HO.LAB 13:42
PROVIDERS: PCP Nurse Practitioner Adult Health; Visit Provider Nurse Practitioner Adult Health
DX: C73 Malignant neoplasm of thyroid gland (principal)
CPT/HCPCS: 36415; 84443

== ENCOUNTER 2023-11-20 08:55 | Outpatient (REF) | payer OTHER, SELFPAY ==
--- NOTE | ~2023-11-20 | MM_ITS ---
EXAMINATION: MM SCREENING DIGITAL BREAST TOMOSYNTHESIS, BILATERAL CLINICAL INFORMATION: Screening. Asymptomatic. COMPARISON: Mammography: This is a baseline examination. TECHNIQUE: Digital breast tomosynthesis is performed in both the craniocaudal and mediolateral oblique views along with computer-aided detection (CAD). Synthesized 2D images are generated from the tomosynthesis. FINDINGS: There are scattered areas of fibroglandular density (ACR BI-RADS breast composition Category b). There are no significant masses, abnormal calcifications, or other abnormalities. MM/MM tomosynthesis screening BI IMPRESSION: No mammographic evidence of malignancy. ASSESSMENT: BI-RADS BI-RADS 1 - Negative RECOMMENDATION: Routine annual mammography screening. 1 year F/U This examination should not preclude the clinical evaluation of a suspicious palpable abnormality. This patient's information was entered into a reminder system with a target due date for their next mammogram.
== END 2023-11-20 08:56 | disposition home or self-care (01) ==
LOC: HO.MAMMO 08:55
PROVIDERS: PCP Nurse Practitioner Adult Health; Visit Provider Student in an Organized Health Care Education/Training Program
DX: Z12.31 Encounter for screening mammogram for malignant neoplasm of breast (principal)
CPT/HCPCS: 77063; 77067

== ENCOUNTER → 2023-11-20 09:15 | Outpatient (BNV) | payer OTHER, SELFPAY | PROVIDERS: PCP Nurse Practitioner Adult Health; Visit Provider Radiology Diagnostic Radiology | DX: Z12.31 Encounter for screening mammogram for malignant neoplasm of breast (principal) | CPT/HCPCS: 77063; 77067 ==

== ENCOUNTER 2024-05-31 13:43 | Outpatient (AMB) | payer OTHER, SELFPAY ==
--- NOTE | 2024-05-31 13:44 | MHC.OFFVIS ---
Vital Signs 05/31/24 13:48 Height 5 ft 2 in Weight 137 lb BMI 25.1 BP 118/60 Intake Visit Reasons: labia cyst Vest Busheler Required: No Information Interpreted: non-clinical & clinical Yarn Weight And Strength Tester: Yarn Weight And Strength Tester Present (Crystal BARRETTRashmi) Accompanied by: Self / Same As Patient Allergies No Known Allergies Allergy (Verified 05/31/24 13:53) Is last menstrual period known: Yes Last menstrual period: 05/24/24 HPI Comments Details: Presenting complaining of recurrent of right vaginal wall cyst and left upper labia majora tender cyst [facility] Medical History Multiple thyroid nodules Family History Mother Uterine cancer Osteoarthritis Father Diabetes mellitus Hypercholesteremia Paternal Grandmother Breast cancer Social History Household Members: Spouse and Children Both parents involved: Yes Caregiver staying overnight: No Housing: House Do you presently have visiting nurse or other home services: No 75 years or older and lives alone: No Alcohol intake: never Patient Tobacco Use Status: Never used Tobacco Current occupational status: employed 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[employer] [place] Current occupational exposures/hazards: No Female Reproductive History Menstrual Age of Menarche: 13 Date of last menstrual period: 05/24/24 Review of Systems Const All systems reviewed & are unremarkable except as noted in HPI and below Physical Exam Vital Signs: Last Vital Signs BP 118/60 05/31/24 13:48 BMI result Body Mass Index 25.1 General: Yes no CVA tenderness External Female Exam: normal appearance of the urethra and other (Left up labia majora tender sebaceous cyst) Speculum Exam - Vagina: normal appearance of the vagina, normal palpation, no lesions, no masses and other (3 cm right vaginal wall cyst) Speculum Exam - Cervix: normal appearance of the cervix, normal palpation, no lesions, no masses and nontender Bimanual exam- vagina & uterus: normal bimanual exam, normal palpation, uterine size normal, normal palpation, uterine shape normal, No Cervical tenderness present and non-tender Bimanual Exam- Adnexa, other: normal adnexae Back/Spine/Pelvis Back: no CVA tenderness Office Procedures Incision/Drainage [employer]PERATOR Incision/Drainage [employer] OPERATOR Details: Before the procedure was started d/w patient the procedure, alternatives (do nothing, medical rx), & all the risks associated with the procedure ( bleeding , infection, vulvar scarring, painful intercourse, injury to vessels, possible need for transfusion with all its risks) then patient signed the consent. Preoperative diagnosis: Left Vulvar sebaceous cyst and right vaginal wall cyst Operation: Left Vulvar I & D and right vaginal wall I&D Post-operative diagnosis: Same Anesthesia: Lidocaine 1% 3cc used Procedure: The skin and the vaginal wall was prepped with Betadine, palpation was used for guidance, 11-blade was used to incise the skin contiguous with the abscess cavity. This yielded to cc of sebaceous fluid &substantially decompressed the swelling, a clean dressing was used at the end. Next a sterile speculum was inserted insert patient vaginal wall 3 cc of 1% lidocaine were injected at the right vaginal wall cyst, using 11 blade a 1 cm incision was performed and clear fluid drainage follow-up. Using 4 0 Vicryl 1 side of the edge of the cyst was sutured to the vaginal wall in [address] Hemostasis was assured using pressure The patient tolerated the procedure well. The patient was sent home in stable condition. Discharge Instructions: The patient was instructed to call if temp>100.4, abdominal pain, nausea/vomiting. This note was generated with a voice recognition program. Some errors may have been overlooked during the review of this note. Sometimes these errors may affect the content or meaning of a given sentence. 35835-W&D of vulva/perineum All charges added?: Procedure code (CPT) selection complete Results AMB Test Urine AMB Test Urine Negative Last Edit by Crystal Vasquez CMA on 05/31/24 13:52 Assessment & Plan Assessment & Plan (1) Vaginal wall cyst: Code(s): N89.8 - Other specified noninflammatory disorders of vagina Category: Medical Plan: Discussed with the patient options of treatment regarding vaginal wall cyst other office I&D or marsupialization. All pros and cons, risks and benefits of each were discussed with the patient, the patient decided to proceed with office I&D, procedure done see note (2) Sebaceous cyst of labia: Code(s): N90.7 - Vulvar cyst Category: Medical Plan: Since the patient has an hour of discomfort from the left upper labia majora cyst, I&D recommended, procedure done see procedure note. Orders: Orders AMB HCG Urine Test Today Z32.02 - Encounter for test, result negative Incision & Drainage [employer] OPERATOR Today N89.8 - Other specified noninflammatory disorders of vagina, N90.7 - Vulvar cyst Coding Level of Care Code Est Pt Level 3 (74894) Procedure Only Diagnoses Vaginal wall cyst N89.8 Sebaceous cyst of labia N90.7 CPT Codes Incision/Drainage [employer] OPERATOR - IDGYN 1: 32201-S&D of vulva/perineum ([id number])
[2024-05-31 13:48] VITALS: BP 118/60; BMI 25.1
== END 2024-05-31 14:58 | disposition home or self-care (01) ==
PROVIDERS: PCP Nurse Practitioner Adult Health; Visit Provider Obstetrics & Gynecology
DX: N89.8 Other specified noninflammatory disorders of vagina (principal); N90.7 Vulvar cyst; Z32.02 Encounter for pregnancy test, result negative
CPT/HCPCS: 56405; 99213

== ENCOUNTER → 2024-05-31 13:43 | Outpatient (BNVA) | payer OTHER, SELFPAY | PROVIDERS: PCP Nurse Practitioner Adult Health; Visit Provider Obstetrics & Gynecology | DX: N90.7 Vulvar cyst (principal) | CPT/HCPCS: 56405; 81025 ==